=== PATIENT | male | born 1950 | race African-American/Black ===

== ENCOUNTER 2017-02-11 10:44 | Emergency (ER) | payer MEDICARE, MEDICAID ==
[~2017-02-11] VITALS: Ht 185.4 cm; Wt 85.3 kg
[~2017-02-11 10:44] MED LIST: METAMUCIL1 PK1 GT; VITAMIN D1000 UNI1 ORAL; WARFARIN SODIUM5 MG ORAL
[2017-02-11] MEDS ORDERED: Vancomycin 1.5gm/D5W 300ml 325 ML IVPB ONE (11:15)
[2017-02-11 12:00] VITALS: BP 114/64
[2017-02-11 12:10] LABS: BASOPHILS % (AUTO) 1.6 % (0.0-2.0); EOSINOPHILS % (AUTO) 3.1 % (0.0-3.0); LYMPHOCYTES % (AUTO) 35.1 % (20.0-45.0); MEAN CORPUSCULAR HEMOGLOBIN 30.6 PG (27.0-31.0); MEAN CORPUSCULAR HGB CONC 32.6 G/DL (32.0-36.0); MEAN CORPUSCULAR VOLUME 94 FL (80-99); MEAN PLATELET VOLUME 6.3 FL (6.5-10.1); MONOCYTES % (AUTO) 7.9 % (1.0-10.0); NEUTROPHILS % (AUTO) 52.4 % (45.0-75.0); PLATELET COUNT 263 K/UL (150-450); RED BLOOD COUNT 4.44 M/UL (4.70-6.10); RED CELL DISTRIBUTION WIDTH 12.5 % (11.6-14.8); WHITE BLOOD COUNT 6.5 K/UL (4.8-10.8)
[2017-02-11 12:17] LABS: INR 0.9 (0.9-1.1); PROTHROMBIN TIME 9.4 SEC (9.30-11.50)
[2017-02-11 12:22] LABS: ALANINE AMINOTRANSFERASE 23 U/L (3-41); ALBUMIN/GLOBULIN RATIO 1.1 (1.0-2.7); ANION GAP 14 (5-15); ASPARTATE AMINO TRANSFERASE 29 U/L (5-40); CARBON DIOXIDE 28 mEQ/L (20-30); CHLORIDE 97 mEQ/L (98-107); CREATININE 0.9 mg/dL (0.7-1.2); GLOMERULAR FILTRATION RATE > 60 mL/min (>60); HEMOLYSIS 7; POTASSIUM 3.9 mEQ/L (3.4-4.9); SODIUM 139 mEQ/L (135-145); TOTAL PROTEIN 7.5 g/dL (6.6-8.7)
[2017-02-11 13:00] VITALS: BP 138/81
[2017-02-11 13:15] LABS: ERYTHROCYTE SEDIMENTATION RATE 21 MM/HR (0-20)
--- NOTE | 2017-02-11 14:26 | Emergency Room Report ---
History of Present Illness General Chief Complaint: General Complaint Source: Patient, Family Member, PMD Present Illness HPI Patient presents emergency department today complaining of left leg pain and swelling. Patient states that he started out with a blister in his left ankle and it progressively became worse and now he has left ankle infection. He has been treated outpatient with oral antibiotics and has failed. He went to see his primary care physician who referred him to come to the emergency department for evaluation. He denies any other injuries. Denies any fever nausea vomiting diarrhea chills. Denies any chest pain shortness of breath. 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 He is currently not taking Coumadin. No other complaints were noted. Symptoms noted to be moderate. Patient does have a history of dementia and at times is not cooperative and has difficulty understanding the situation. Patient is present with his ex-.No other modifying factors. No other associated signs and symptoms. No other complaints were noted. Allergies: Coded Allergies: NO KNOWN ALLERGIES (Unverified Allergy, Unknown, 07/04/15) Patient History PMH Narrative pulmonary embolism, DVT,Knee surgery Past Surgical History: none Pertinent Family History: none Social History: Denies: alcohol use, drug use, smoking Reviewed Nursing Documentation: PMH: Agreed, PSxH: Agreed Nursing Documentation-PMH Hx Cardiac Problems: No Hx Hypertension: No - DEMENTIA Hx Cancer: No Hx Gastrointestinal Problems: No Hx Neurological Problems: Yes Hx Dementia: Yes Review of Systems All Other Systems: negative except mentioned in HPI Physical Exam Vital Signs Date Time Temp Pulse Resp B/P Pulse Ox O2 Delivery O2 Flow Rate FiO2 02/11/17 10:49 98.4 103 17 133/86 98 Room Air Sp02 EP Interpretation: reviewed, normal General Appearance: normal inspection, well appearing, no apparent distress, alert Head: atraumatic Eyes: bilateral eye normal inspection ENT: normal ENT inspection, hearing grossly normal, normal voice Neck: normal inspection, full range of motion, supple, no bony tend Respiratory: normal inspection, lungs clear, normal breath sounds, no respiratory distress, no retraction, no wheezing Cardiovascular #1: regular rate, rhythm, no edema Gastrointestinal: normal inspection, normal bowel sounds, non tender, soft, no guarding, no hernia Genitourinary: no CVA tenderness Musculoskeletal: back normal, normal range of motion, other - left lower ankle cellulitis Neurologic: normal inspection, alert, responsive, speech normal Psychiatric: normal inspection, judgement/insight normal, mood/affect normal Skin: other - left ankle and lower leg cellulitis and skin breakdown Medical Decision Making Diagnostic Impression: Primary Impression: Cellulitis, leg Additional Impression: Left leg cellulitis ER Course Patient presents emergency department today complaining of left lower extremity pain and swelling. Differential diagnoses include DVT, cellulitis, abscess, dependent edema just to name a few. Patient exam is consistent with cellulitis. However given patient's history of DVT I felt an ultrasound was necessary rule out DVT. Patient's ultrasound was negative. Patient's let us is also negative. Therefore I felt the patient likely has cellulitis. Case was discussed with transferring physician. Patient is stable for transfer and will be transferred [facility] for further treatment according to insurance request. Labs Test 02/11/17 11:35 White Blood Count 6.5 K/UL (4.8-10.8) Red Blood Count 4.44 M/UL (4.70-6.10) Hemoglobin 13.6 G/DL (14.2-18.0) Hematocrit 41.7 % (42.0-52.0) Mean Corpuscular Volume 94 FL (80-99) Mean Corpuscular Hemoglobin 30.6 PG (27.0-31.0) Mean Corpuscular Hemoglobin Concent 32.6 G/DL (32.0-36.0) Red Cell Distribution Width 12.5 % (11.6-14.8) Platelet Count 263 K/UL (150-450) Mean Platelet Volume 6.3 FL (6.5-10.1) Neutrophils (%) (Auto) 52.4 % (45.0-75.0) Lymphocytes (%) (Auto) 35.1 % (20.0-45.0) Monocytes (%) (Auto) 7.9 % (1.0-10.0) Eosinophils (%) (Auto) 3.1 % (0.0-3.0) Basophils (%) (Auto) 1.6 % (0.0-2.0) Erythrocyte Sedimentation Rate 21 MM/HR (0-20) Prothrombin Time 9.4 SEC (9.30-11.50) Prothromb Time International Ratio 0.9 (0.9-1.1) Activated Partial Thromboplast Time 26 SEC (23-33) Sodium Level 139 mEQ/L (135-145) Potassium Level 3.9 mEQ/L (3.4-4.9) Chloride Level 97 mEQ/L (98-107) Carbon Dioxide Level 28 mEQ/L (20-30) Anion Gap 14 (5-15) Blood Urea Nitrogen 11 mg/dL (7-23) Creatinine 0.9 mg/dL (0.7-1.2) Estimat Glomerular Filtration Rate > 60 mL/min (>60) Glucose Level 93 mg/dL (74-106) Calcium Level 9.0 mg/dL (8.6-10.2) Total Bilirubin 0.6 mg/dL (0.0-1.2) Aspartate Amino Transf (AST/SGOT) 29 U/L (5-40) Alanine Aminotransferase (ALT/SGPT) 23 U/L (3-41) Alkaline Phosphatase 97 U/L (40-129) Total Protein 7.5 g/dL (6.6-8.7) Albumin 4.0 g/dL (3.5-5.2) Globulin 3.5 g/dL Albumin/Globulin Ratio 1.1 (1.0-2.7) EKG Diagnostic Results Rate: normal Rhythm: NSR ST Segments: no acute changes Rhythm Strip Diag. Results EP Interpretation: yes Rate: 86 Rhythm: NSR, no PVC's, no ectopy CT/MRI/US Diagnostic Results CT/MRI/US Diagnostic Results : Imaging Test Ordered: ultrasound left lower extremity negative for DVT Last Vital Signs Date Time Temp Pulse Resp B/P Pulse Ox O2 Delivery O2 Flow Rate FiO2 02/11/17 13:00 97.4 81 16 138/81 95 Room Air Status: improved Disposition: HOME, SELF-CARE Condition: Stable Referrals: [facility],REFERRING (PCP) FRAN SANTO M.D. Feb 11, 2017 14:26
[2017-02-11 14:45] VITALS: BP 135/79
[2017-02-11 14:53] VITALS: BP 135/79
--- NOTE | 2017-02-12 13:47 | Diagnostic Imaging Report ---
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 Imaging also reveals patency of the common femoral vein and calf veins. The greater saphenous vein is also within normal limits. There is no evidence of acute deep vein thrombosis.
== END 2017-02-11 14:56 | disposition home or self-care (01) ==
LOC: EDBEDREQ 11:13 → EMR 11:35
DX: L03.116 Cellulitis of left lower limb (principal); I10 Essential (primary) hypertension; F03.90 Unspecified dementia, unspecified severity, without behavioral disturbance, psychotic disturbance, mood disturbance, and anxiety; Z86.718 Personal history of other venous thrombosis and embolism
CPT/HCPCS: 36415; 80053; 85025; 85610; 85651; 85730; 87040; 93005; 93971; 96374